=== PATIENT | male | born 1985 | race Caucasian/White ===

== ENCOUNTER 2018-07-14 18:17 | Emergency (ER) | payer BC ==
[2018-07-14] MEDS ORDERED: TETANUS/DIPHTHERIA/PERTUSSIS 0.5 ML SYRINGE IM ONE (19:00)
--- NOTE | 2018-07-14 19:03 | ED Physician Documentation ---
PD HPI LOWER EXT INJURY - Stated complaint Stated Complaint: R LEG LAC - Chief complaint Chief Complaint: Laceration - History obtained from History obtained from: Patient - History of Present Illness PD HPI LOW EXT INJURY LOCATION: Right Type of injury: Laceration (chainsaw wound RLE) Timing - onset: Today Review of Systems Constitutional: reports: Reviewed and negative Throat: reports: Reviewed and negative Cardiac: reports: Reviewed and negative Respiratory: reports: Reviewed and negative PD PAST MEDICAL HISTORY - Present Medications Home Medications: Ambulatory Orders Medication Instructions Recorded Confirmed RX: Metoprolol Tartrate 25 mg PO DAILY PRN #30 tablet 07/14/18 - Allergies Allergies/Adverse Reactions: Allergies Allergy/AdvReac Type Severity Reaction Status Date / Time No Known Drug Allergies Allergy Verified 07/14/18 18:23 PD ED PE NORMAL - Vitals Vital signs reviewed: Yes - General General: Alert and oriented X 3, No acute distress - Extremities Extremities: Other (6cm lac Lat calf. Only the bottom 2.5 cm needss suturing, the upper part is more abrasion) - Neuro Neuro: Alert and oriented X 3, Normal speech Results - Vitals Vitals: Vital Signs - 24 hr 07/14/18 07/14/18 18:22 19:40 Temperature 36 C L 36.8 C Heart Rate 81 73 Respiratory 20 14 Rate Blood Pressure 136/85 H 120/71 O2 Saturation 98 96 Oxygen O2 Source Room air Procedures - Laceration (location) RLE Length in cm: 3 Wound type: Linear, Other (Jagged and macerated at the edge and some sharp debridement of devitalized tissue was done) Neurovascular status: Sensory intact, Motor intact, Vascular intact Anesthesia: Lidocaine 1% with epi Wound Preparation: Hibiclens, Irrigated copiously NS Skin layer closure: Nylon, Interrupted, Size #-0 - enter number (4-0), Sutures - enter # (6) Other: Tetanus booster given Complexity: Simple PD MEDICAL DECISION MAKING - ED course ED course: The wound was closed and tetanus was updated. He was counseled on wound care. 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 Departure - Departure Disposition: 01 Home, Self Care Clinical Impression: Laceration Condition: Good Record reviewed to determine appropriate education?: Yes Instructions: ED Laceration All Prescriptions: RX: Metoprolol Tartrate 25 mg PO DAILY PRN #30 tablet PRN Reason: Anxiety Comments: Come back for any signs of infection which would include: Redness, swelling, drainage, increased pain, or fevers. You can wash it soap and water. Keep it covered and moist with bacitracin ointment which is available over the counter; avoid neosporin. Follow-up with your physician in 14 days for suture removal. Discharge Date/Time: 07/14/18 19:40
[2018-07-14 19:49] VITALS: BP 120/71
== END 2018-07-14 19:40 | disposition home or self-care (01) ==
LOC: ED 18:17
DX: S81.811A Laceration without foreign body, right lower leg, initial encounter (principal); S80.811A Abrasion, right lower leg, initial encounter; W29.3XXA Contact with powered garden and outdoor hand tools and machinery, initial encounter; Y93.89 Activity, other specified; Z23 Encounter for immunization; F41.9 Anxiety disorder, unspecified
CPT/HCPCS: 12002; 90471; 99283

== ENCOUNTER 2018-07-27 16:00 | Outpatient (CLI) | payer BC | END 2018-07-27 23:59 | disposition home or self-care (01) | LOC: LAB.R 16:00 | PROVIDERS: ATTEND Family Medicine | DX: S81.811A Laceration without foreign body, right lower leg, initial encounter (principal) | CPT/HCPCS: 87070; 87205 ==